=== PATIENT | female | born 1975 | race Asian ===

== ENCOUNTER 2019-01-04 05:55 | Day surgery (SDC) | payer OTHER, MEDICAID ==
[2019-01-04] MEDS: BUPIVACAINE 0.25% (MPF) 30 ML INJ (01:58)
[2019-01-04] MEDS ORDERED: PROPOFOL 20 ML (07:37)
[2019-01-04] MEDS ORDERED: GLYCOPYRROLATE 0.4 MG INJ ×2 (07:37→08:06)
[2019-01-04] MEDS ORDERED: LIDOCAINE 2% (SDV) 5 ML INJ (07:37)
[2019-01-04] MEDS ORDERED: ROCURONIUM 50 MG INJ (07:37)
[2019-01-04] MEDS ORDERED: SUCCINYLCHOLINE CHLORIDE 100 MG/5 ML SYG IV (07:37)
[2019-01-04] MEDS ORDERED: MEPERIDINE 100 MG INJ (07:38)
[2019-01-04] MEDS ORDERED: ONDANSETRON 4 MG INJ (07:56)
[2019-01-04] MEDS ORDERED: METOCLOPRAMIDE 10 MG INJ (07:56)
[2019-01-04] MEDS ORDERED: CEFAZOLIN 1 GM INJ (07:56)
[2019-01-04] MEDS ORDERED: NEOSTIGMINE 10 MG INJ (08:06)
[2019-01-04] MEDS ORDERED: MIDAZOLAM 1 MG/ML 2 ML INJ IV (08:30)
[2019-01-04] MEDS ORDERED: FENTAnyl 50 MCG/ML VIAL IV ×3 (08:30)
[2019-01-04] MEDS ORDERED: MEPERIDINE 25 MG INJ IV (08:30)
[2019-01-04] MEDS ORDERED: METOCLOPRAMIDE 10 MG INJ IV (08:30)
[2019-01-04] MEDS ORDERED: DIPHENHYDRAMINE 50 MG INJ IV (08:30)
[2019-01-04] MEDS ORDERED: HYDROmorphONE 1 MG/5 ML IV SYRINGE IV ×2 (08:30→08:32)
[2019-01-04] MEDS ORDERED: OXYCODONE/ACETAMINOPHEN (5/325) TAB PO ×2 (08:30)
[2019-01-04] MEDS ORDERED: ONDANSETRON 4 MG INJ IV (08:30)
[2019-01-04] MEDS: HYDROmorphONE 1 MG/5 ML IV SYRINGE IV ×3 (08:46→08:58)
[2019-01-04 12:46] LABS: WHITE BLOOD COUNT 6.8 10^3/ul (4.8-10.8)
[2019-01-04 12:46] LABS: ADD MAN DIFF? NO; BASOPHILS % 0.6 % (0.0-2.0); EOSINOPHILS # 0.1 10^3/ul (0.0-0.5); EOSINOPHILS % 1.8 % (0.0-7.0); HEMATOCRIT 41.9 % (37.0-47.0); HEMOGLOBIN 14.1 g/dl (12.0-16.0); LYMPHOCYTES # 2.1 10^3/ul (0.8-2.9); LYMPHOCYTES % 30.6 % (15.0-51.0); MEAN CORPUSCULAR HEMOGLOBIN 29.9 pg (29.0-33.0); MEAN CORPUSCULAR HGB CONC 33.7 g/dl (32.0-37.0); MEAN CORPUSCULAR VOLUME 88.8 fl (82.0-101.0); MEAN PLATELET VOLUME 9.6 fl (7.4-10.4); MONOCYTE # 0.4 10^3/ul (0.3-0.9); MONOCYTES % 6.4 % (0.0-11.0); NEUTROPHIL # 4.1 10^3/ul (1.6-7.5); NEUTROPHILS % 60.3 % (39.0-77.0); PLATELET COUNT 254 10^3/UL (140-415); RED BLOOD COUNT 4.72 10^6/ul (4.20-5.40); RED CELL DISTRIBUTION WIDTH 11.6 % (11.5-14.5)
== END 2019-01-04 10:00 | disposition home or self-care (01) ==
LOC: SDS 05:55
DX: Z30.2 Encounter for sterilization (principal)
CPT/HCPCS: 58600; 85025; 86900; 86901; 88302